=== PATIENT | female | born 1975 | race Caucasian/White ===

== ENCOUNTER 2016-06-19 12:42 | Emergency (ER) | payer OTHER ==
[~2016-06-19] VITALS: Ht 167.6 cm; Wt 59.0 kg
[~2016-06-19 12:42] MED LIST: MMW SSP; PRED20 PO
[2016-06-19 12:50] VITALS: BP 113/67; PULSE 66; RESP 16; TEMP 98.3; O2SAT 100
[2016-06-19] MEDS ORDERED: methylPREDNISolone SOD SUCC 125 MG/2 ML VIAL IM ONE (13:30)
--- NOTE | 2016-06-19 13:32 | PD ---
HPI Chief Complaint: Respiratory Symptoms Time Seen by Provider: 13:30 Travel History International Travel<30 days: No Contact w/Intl Traveler<30days: No Traveled to known affect area: No History of Present Illness HPI Patient is a 41-year-old female who presented to emergency department for evaluation of shortness of breath and wheezing. Patient states her symptoms started approximately 3 days ago, at that time she felt like she might have had a low-grade fever. She denies any fever, chills, nausea, vomiting, headache at this time. She states she has a history of asthma and does not have an inhaler. She reports not needing her inhaler on a weekly basis, only as needed. She denies any other complaints at this time but states that she's felt increasingly more short of breath and the wheezing has exacerbated today. PFSH Past Medical History Anemia: Yes Asthma: Yes Anxiety: Yes Cancer: No Cardiovascular Problems: No Diminished Hearing: No Endocrine: No Gastrointestinal Disorders: Yes Genitourinary: No Musculoskeletal: Yes (SCOLIOSIS) Neurologic: No Reproductive: Yes (C SECTION X'S 2, AND TUBAL LIGATION 2002) Respiratory: Yes (ASTHMA) Pneumonia: Yes ?: Not : 7 Para: 6 : 1 Tubal Ligation: Yes Past Surgical History AICD: No Arteriovenous Shunt: No Section: Yes Gynecologic Surgery: Yes ( X 2) Insulin Pump: No Joint Replacement: No Pacemaker: No Other Surgery: No Social History Alcohol Use: Yes (RARELY) Tobacco Use: Yes (QUIT APRIL 2013) Substance Use: No Allergies-Medications (Allergen,Severity, Reaction): Coded Allergies: Penicillin (Verified Allergy, Severe, THROAT SWELLS, HIVES, 06/19/16) Reported Meds & Prescriptions Reported Meds & Active Scripts Active No Active Prescriptions or Reported Medications Review of Systems Except as stated in HPI: all other systems reviewed are Neg Respiratory: Positive: Cough, Shortness of Breath, Wheezing Physical Exam Narrative GENERAL: Well-nourished, well-developed patient. SKIN: Warm and dry. HEAD: Normocephalic. EYES: No scleral icterus. No injection or drainage. NECK: Supple, trachea midline. No JVD or lymphadenopathy. CARDIOVASCULAR: Regular rate and rhythm without murmurs, gallops, or rubs. RESPIRATORY: Expiratory wheezing noted throughout lung [place], no increased work of breathing, no nasal flaring, no retractions noted. GASTROINTESTINAL: Abdomen soft, non-tender, nondistended. MUSCULOSKELETAL: No cyanosis, or edema. BACK: Nontender without obvious deformity. No CVA tenderness. Data Data Last Documented VS Vital Signs Date Time Temp Pulse Resp B/P Pulse Ox O2 Delivery O2 Flow Rate FiO2 06/19/16 13:40 99 21 06/19/16 12:50 98.3 66 16 113/67 Orders Methylprednisolone So Succ Inj (Solumedr (06/19/16 13:30) Albuterol-Ipratropium Neb (Duoneb Neb) (06/19/16 13:30) [facility] Medical Decision Making Medical Screen Exam Complete: Yes Emergency Medical Condition: Yes Interpretation(s) Vital Signs Date Time Temp Pulse Resp B/P Pulse Ox O2 Delivery O2 Flow Rate FiO2 06/19/16 12:50 98.3 66 16 113/67 100 Differential Diagnosis Bronchitis versus asthma versus pneumonia versus viral URI versus other Narrative Course Patient is a 41-year-old female who presented to emergency department evaluation of 3 days of shortness of breath and wheezing. Symptoms exacerbated today. She denies any other complaints at this time. She does endorse a history of asthma but has not had an inhaler. She reports that she just obtained Medicaid benefits. Duo nebs and Solu-Medrol ordered. Will reassess patient after administration. Patient declined Solu-Medrol injection. She does report improvement after DuoNeb nebulizer treatments. Reassessment of lung sounds shows marked improvement, no wheezing noted. She is encouraged follow-up with primary doctor return to emergency department for any new or worsening symptoms. She is encouraged to use albuterol inhaler as needed and as directed. She verbalized understanding of instructions. Patient stable for discharge. Diagnosis Primary Impression: Asthma exacerbation Referrals: Primary Care Physician Patient Instructions: Asthma (ED), General Instructions Additional Instructions: Follow-up with primary doctor Take medications as directed Return to emergency department for any new or worsening symptoms Med/Other Pt SpecificInfo: Prescription(s) given Scripts Prednisone 50 Mg Tab50 Mg PO DAILY #5 TAB Ref 0 Prov:Juli Morales 06/19/16 Albuterol 18 GM Inh (Ventolin Hfa 18 GM Inh)90 Mcg/Act Aer2 Puff INH Q4-6H PRN ( SHORTNESS OF BREATH) #1 INHALER Ref 0 Prov:Juli Morales 06/19/16 Disposition: 01 DISCHARGE HOME Condition: Stable Juli Morales Jun 19, 2016 13:32
[2016-06-19 13:40] VITALS: O2SAT 99
[2016-06-19] MEDS: RESP: ALBUTEROL 2.5 MG/IPRATROPIUM 0.5 MG NEB (SCH) INH ×3 (13:41→14:03)
[2016-06-19] MEDS ORDERED: PRED50 PO (14:24)
[2016-06-19] MEDS ORDERED: VENTAER INH (14:24)
== END 2016-06-19 14:29 | disposition home or self-care (01) ==
LOC: PHEFT 12:42
DX: J45.901 Unspecified asthma with (acute) exacerbation (principal); R06.2 Wheezing; D64.9 Anemia, unspecified
CPT/HCPCS: 94640; 94664; 99283; J2930

== ENCOUNTER 2017-05-27 09:51 | Emergency (ER) | payer MEDICAID, OTHER ==
[~2017-05-27] VITALS: Ht 167.6 cm; Wt 58.0 kg
[~2017-05-27 09:51] MED LIST changes: -MMW SSP; -PRED20 PO; +PRED50 PO; +VENTAER INH
[2017-05-27 09:58] VITALS: BP 114/52; PULSE 88; RESP 16; TEMP 98.7; O2SAT 100
--- NOTE | 2017-05-27 10:59 | PD ---
HPI Chief Complaint: Cold / Flu Symptoms Time Seen by Provider: 10:47 Travel History International Travel<30 days: No Contact w/Intl Traveler<30days: No Traveled to known affect area: No History of Present Illness HPI Patient comes in complaining of cough, wheezing, chest tightness that began yesterday. Patient reports has a history of asthma and this feels similar. Patient states that she tried using a steam shower and took a leftover prednisone from last year that seemed to help a little bit. Patient was unable to find her inhaler. Patient states she only uses her inhaler when she gets sick as this is nothing that seems to trigger her asthma. Patient's states she last used her inhaler in December. Patient denies anything making symptoms worse. Denies any fevers, nausea, vomiting, abdominal pain, chest pain, sore throat, or headaches. Patient denies any known sick contacts but does report working with the public. PFSH Past Medical History Anemia: Yes Asthma: Yes Anxiety: Yes Cancer: No Cardiovascular Problems: No Diminished Hearing: No Endocrine: No Gastrointestinal Disorders: Yes Genitourinary: No Musculoskeletal: Yes (SCOLIOSIS) Neurologic: No Reproductive: Yes (C SECTION X'S 2, AND TUBAL LIGATION 2002) Respiratory: Yes (ASTHMA) Pneumonia: Yes Influenza Vaccination: No ?: Not LMP: YEST : 7 Para: 6 : 1 Tubal Ligation: Yes Past Surgical History AICD: No Arteriovenous Shunt: No Section: Yes Gynecologic Surgery: Yes ( X 2) Insulin Pump: No Joint Replacement: No Pacemaker: No Other Surgery: No Social History Alcohol Use: Yes (RARELY) Tobacco Use: Yes (QUIT APRIL 2013) Substance Use: No Allergies-Medications (Allergen,Severity, Reaction): Coded Allergies: penicillin G (Unverified Allergy, Severe, THROAT SWELLS, HIVES, 05/27/17) Reported Meds & Prescriptions Reported Meds & Active Scripts Active Prednisone (21) 10 mg tab Dose Pack (Prednisone) 10 Mg Pack 10 Mg PO DIRECTED Ventolin Hfa 18 GM Inh (Albuterol Sulfate) 90 Mcg/Act Aer 2 Puff INH Q4H PRN Ventolin Hfa 18 GM Inh (Albuterol Sulfate) 90 Mcg/Act Aer 2 Puff INH Q4-6H PRN Review of Systems Except as stated in HPI: all other systems reviewed are Neg Physical Exam Narrative GENERAL: Well-developed, well nourished, in no acute distress, and non-ill appearing. SKIN: Focused skin assessment warm and dry. HEAD: Atraumatic. Normocephalic. EYES: Pupils equal and round. EOMI. No scleral icterus. No injection or drainage. ENT: No nasal bleeding or discharge. Mucous membranes pink and moist. Tympanic membranes pearly salazar bilaterally. Posterior pharynx nonerythematous without exudate. Uvula is midline. No tenderness to facial sinuses to palpation. NECK: Trachea midline. No cervical lymphadenopathy. Supple. No nuclear rigidity. CARDIOVASCULAR: Regular rate and rhythm. No murmur appreciated. RESPIRATORY: No accessory muscle use. No respiratory distress. Scant wheezing throughout great on the right than left. MUSCULOSKELETAL: No obvious deformities. No clubbing. No cyanosis. No edema. Full range of motion. NEUROLOGICAL: Awake and alert. No obvious cranial nerve deficits. Motor grossly within normal limits. Normal speech. PSYCHIATRIC: Appropriate mood and affect; insight and judgment normal. Data Data Last Documented VS Vital Signs Date Time Temp Pulse Resp B/P (MAP) Pulse Ox O2 Delivery O2 Flow Rate FiO2 05/27/17 10:40 99 Room Air 05/27/17 09:58 98.7 88 16 114/52 (72) Orders Orders Albuterol-Ipratropium Neb (Duoneb Neb) (05/27/17 11:00) Prednisone (Deltasone) (05/27/17 11:00) Ed Discharge Order (05/27/17 12:01) [facility] Medical Decision Making Medical Screen Exam Complete: Yes Emergency Medical Condition: Yes Differential Diagnosis Asthma exacerbation, pneumonia, URI, cough Narrative Course The patient looks great and improved well with Nebulizer and steroid medication. The patient is moving air well and in no distress nor significant dyspnea, and oxygen saturation is within normal limits. There is no clinical evidence to suggest pneumonia at this time. Diagnosis, plan of care and management were discussed with the patient who agreed with plan and feels better and ready to go home. The patient was instructed to return if worsen, worsening difficulty breathing or wheezing, persistent fever, chest pain or as needed. Patient in no obvious distress upon re-evaluation. Patient was asked if they wanted to speak to my attending, which the patient did not wish to do at this time. Any questions/concerns in reference to patient diagnosis/condition discussed and clarified prior to patient's discharge. Reinforced sheer importance of close follow up with patient's primary physician or primary care clinic. Instructed patient to return to ED immediately, if symptoms return/ worsen. Patient showed understanding of above instructions. Further instructions and recommendations were detailed in discharge paperwork. Patient ambulated without difficulty out of ED at discharge. Diagnosis Primary Impression: Asthma exacerbation Qualified Codes: J45.901 - Unspecified asthma with (acute) exacerbation Referrals: [facility] Patient Instructions: Asthma (ED), General Instructions Additional Instructions: Follow-up with your primary care physician in 3-5 days for reevaluation. Take all medication as prescribed. Return to the emergency department if symptoms get worse. Med/Other Pt SpecificInfo: Prescription(s) given Scripts Prednisone (21) 10 mg tab Dose Pack (Prednisone (21) 10 mg tab Dose Pack) 10 Mg Pack 10 MG PO DIRECTED for Inflammation, #1 DSPK 0 Refills Prov: Zayra Bull MD 05/27/17 Albuterol 18 GM Inh (Ventolin Hfa 18 GM Inh) 90 Mcg/Act Aer 2 PUFF INH Q4H Y for SHORTNESS OF BREATH, #1 INHALER 0 Refills Prov: Zayra Bull MD 05/27/17 Disposition: 01 DISCHARGE HOME Condition: Stable Christian Bianchi May 27, 2017 10:59
[2017-05-27] MEDS ORDERED: predniSONE 20 MG TAB PO ONE (11:00)
[2017-05-27] MEDS: RESP: ALBUTEROL 2.5 MG/IPRATROPIUM 0.5 MG NEB (SCH) INH ×3 (11:20→11:22)
[2017-05-27] MEDS ORDERED: VENTAER INH (11:59)
[2017-05-27] MEDS ORDERED: PRED10PA PO (11:59)
== END 2017-05-27 12:06 | disposition home or self-care (01) ==
LOC: PHED 09:51 → PHEFT 12:06
DX: J45.901 Unspecified asthma with (acute) exacerbation (principal); Z87.891 Personal history of nicotine dependence
CPT/HCPCS: 94640; 94664; 99284; J7512